=== PATIENT | male | born 1960 | race Caucasian/White ===

== ENCOUNTER → 2020-10-03 | Outpatient (CLI) | payer BC ==
[~2020-10-03] MED LIST: ADVI200C5 PO; AMLO10TA PO; Apresoline PO; FISH1000 PO; GLUCOSAMINE PO; LOPR1TAB6 PO; TYLE325T5 PO
[2020-10-03 13:30] LABS: APPEARANCE, URINE MANUAL CLEAR (CLEAR); COLOR, URINE MANUAL YELLOW (YELLOW)
[2020-10-03 13:31] LABS: BILIRUBIN, URINE MANUAL NEGATIVE (NEGATIVE); BLOOD URINE MANUAL POSITIVE (NEGATIVE); GLUCOSE, URINE (UA) MANUAL NEGATIVE (NEGATIVE); KETONE, URINE MANUAL NEGATIVE (NEGATIVE); LEUKOCYTE ESTERASE, URINE MAN NEGATIVE (NEGATIVE); NITRITE, URINE MANUAL NEGATIVE (NEGATIVE); PROTEIN, URINE MANUAL 2+ mg/dL (NEGATIVE); SPECIFIC GRAVITY,URINE MANUAL 1.019 (1.002-1.035); UROBILINOGEN, URINE MANUAL NORMAL (NORMAL)
[2020-10-03 13:32] LABS: MUCUS, URINE SMALL AMOUNT (NEGATIVE)
[2020-10-03 14:11] LABS: ALBUMIN 3.7 GM/DL (3.2-5.2); ALT/SGPT 16 U/L (12-78); BILIRUBIN,TOTAL 1.6 MG/DL (0.2-1.0); BLOOD UREA NITROGEN 13 MG/DL (7-18); CARBON DIOXIDE LEVEL 24 MEQ/L (21-32); CHLORIDE LEVEL 106 MEQ/L (98-107); CHOLESTEROL LEVEL 169 MG/DL (<200); CREATININE FOR GFR 0.89 MG/DL (0.70-1.30); GLOMERULAR FILTRATION RATE > 60.0 (>56); GLUCOSE, FASTING 106 MG/DL (70-100); HDL CHOLESTEROL 34 MG/DL (>40); LDL CHOLESTEROL 101 MG/DL (<100); NON-HDL-C 135 MG/DL; POTASSIUM SERUM 4.4 MEQ/L (3.5-5.1); SODIUM LEVEL 138 MEQ/L (136-145); TOTAL PROTEIN 7.4 GM/DL (6.4-8.2); TRIGLYCERIDES LEVEL 168 MG/DL (<150); URIC ACID 9.5 MG/DL (3.5-7.2)
== END ==
LOC: M LAB 11:33
PROVIDERS: ATTEND Internal Medicine Cardiovascular Disease
DX: I10 Essential (primary) hypertension (principal)

== ENCOUNTER → 2023-12-10 | Outpatient (CLI) | payer BC | LOC: M PLAIMG 08:37 | PROVIDERS: ATTEND Physician Assistant | DX: I77.810 Thoracic aortic ectasia (principal) ==